=== PATIENT | female | born 2000 | race American Indian/Alaskan Native ===

== ENCOUNTER 2020-02-19 00:33 | Inpatient (IN) | payer BC, OTHER, MEDICAID ==
[~2020-02-19 00:33] MED LIST: Acetaminophen 325 MG Tab PO PRN; Carboprost Tromethamine 250 MCG/1 ML Amp IM PRN; Lactated Ringers 1,000 ML IV SCH; Lidocaine 1% 30 ML SDV INJECT PRN; Methylergonovine 0.2 MG/1 ML Amp IM PRN; Misoprostol 400 MCG (4 X 100 MCG TAB) RECTAL PRN; Misoprostol 50 MCG (1/2 of 100 MCG) Tab VAG PRN; Ondansetron 4 MG/2 ML SDV IVPUSH PRN; Oxytocin/Normal Saline 30 UNIT/500 ML BAG IV SCH; Sodium Chloride 0.9% 10 ML Syringe FLUSH PRN; Tranexamic Acid 1,000 MG in Sodium Chloride 0.9% 100 ML IV PRN; fentaNYL 100 MCG/2 ML SDV IVPUSH PRN
[2020-02-19] MEDS ORDERED: Misoprostol 25 MCG (1/4 of 100 MCG) Tab VAG PRN (05:00)
[2020-02-19] MEDS ORDERED: Lactated Ringers 1,000 ML IV SCH (05:45)
[2020-02-19] MEDS ORDERED: Simethicone 80 MG Tab.Chew PO PRN (09:19)
[2020-02-19] MEDS ORDERED: Docusate Sodium 100 MG Cap PO PRN (09:19)
[2020-02-19] MEDS ORDERED: Benzocaine/Menthol 20%-0.5% Spray 56 GM Canister TOP PRN (09:19)
[2020-02-19] MEDS: Ibuprofen 800 MG Tab PO PRN (14:05)
[2020-02-19] MEDS: Acetaminophen 325 MG Tab PO PRN (14:05)
--- NOTE | 2020-02-19 17:55 | DEL ---
DATE: 02/19/2020 PREPROCEDURE DIAGNOSES: 1. 41-0/7 weeks estimated gestational age. 2. 1, para 0. 3. Anemia of . 4. Constipation with hemorrhoids of . 5. History of gestational proteinuria. POSTPROCEDURE DIAGNOSES: 1. 41-0/7 weeks estimated gestational age. 2. 1, now para 1-0-0-1. 3. Bilateral labial lacerations of maternal right side repaired. 4. Status post spontaneous vaginal delivery of viable female . 5. Anemia of . 6. Constipation with hemorrhoids of . 7. History of gestational proteinuria. BRIEF HISTORY: A 19-year-old female brought into the hospital at midnight for Cytotec induction. She received a 50 mcg and then a 25 mcg dose of Cytotec after which time she had spontaneous rupture of membranes at approximately 7:30 in the morning when she was 5 cm dilated, 100% effaced, and -2 station. Amniotic fluid was clear. She continued to progress through labor on her own after that receiving 1 dose of IV fentanyl and no other additional pain medications during labor. Once reaching stage II, she pushed for about 20 minutes before having a successful vaginal delivery without complications. DETAILS: With the patient in dorsal lithotomy position, she delivered a viable female infant in the DONTRELL position over an intact perineum. Baby was dried, stimulated, and placed on mother's abdomen and then bulb suctioned. Three- vessel umbilical cord was allowed to stop pulsating, and then it was doubly clamped and cut, and cord blood sample obtained. Placenta then delivered by gentle cord traction and concomitant uterine massage, inspected and intact with battledore insertion of the umbilical cord and three-vessel verified. Labia and vagina inspected, and there were bilateral labial lacerations. The left side one was rather mild and hemostatic and not repaired. The right side one was wider and not hemostatic, therefore, anesthetized with 1% lidocaine without epinephrine and closed with a running suture of 4-0 Vicryl in the usual fashion. Perineum did not have any significant lacerations. The patient tolerated procedure well. She and baby are staying in the room at this time to initiate [id number] and . ESTIMATED BLOOD LOSS: 300 mL. COMPLICATIONS: None. FINDINGS: Viable female with scores of 8 and 9, weight 3825 g, and length 20 inches. [facility] /[id number]
[2020-02-20] MEDS ORDERED: Prenatal Multivitamin with Calcium/Folic Acid/Iron Tab PO SCH (09:00)
[2020-02-20] MEDS: Ibuprofen 800 MG Tab PO PRN (09:15)
[2020-02-20] MEDS: Acetaminophen 325 MG Tab PO PRN (09:15)
== END 2020-02-20 14:35 | disposition home or self-care (01) | DRG 560 ==
LOC: DL.OB 00:33 → OBSVTOIN 08:49 → DL.MS 13:38
PROVIDERS: ADMIT Family Medicine; ATTEND Family Medicine
PROC: 10E0XZZ Delivery of Products of Conception, External Approach (ICD-10-PCS; principal; 2020-02-19)
PROC: 0HQ9XZZ Repair Perineum Skin, External Approach (ICD-10-PCS; 2020-02-19)
DX: O48.0 Post-term pregnancy (principal); Z37.0 Single live birth; O99.02 Anemia complicating childbirth; D64.9 Anemia, unspecified; K59.00 Constipation, unspecified; O99.62 Diseases of the digestive system complicating childbirth; Z3A.41 41 weeks gestation of pregnancy; O70.0 First degree perineal laceration during delivery
CPT/HCPCS: 36415; 59200; 85027; A9270-GY; J2001; J2590; J3010; J7120; U0002